=== PATIENT | female | born 1970 | race Caucasian/White ===

== ENCOUNTER 2021-03-25 12:16 | Emergency (ER) | payer OTHER ==
[~2021-03-25 12:16] MED LIST: BENTYL 20MG TAB20 MG PO; CYCLOBENZAPRINE10 MG PO; LODINE CAP 300300 MG PO; MEDROL DOSEPAK 24 MG PO; MOBIC15 MG PO; NEURONTIN800 MG PO; NORCO 5-325 TA1 EACH PO; PENVEE K 500 M500 MG PO; PROTONIX40 MG PO; TRIAMTERENE-HC1 EAC1 PO; ZOFRAN ODT 4 MG4 MG PO
[2021-03-25 12:57] LABS: HEMOGLOBIN 13.5 gm/dl (12.3-15.3); RED BLOOD COUNT 4.83 M/UL (4.00-5.10); WHITE BLOOD COUNT 7.7 K/UL (4.5-11.0)
[2021-03-25 13:21] LABS: BUN/CREATININE RATIO 22 (0-10)
[2021-03-25] MEDS ORDERED: IBUPROFEN800 MG PO (16:58)
== END 2021-03-25 17:07 | disposition home or self-care (01) ==
LOC: ER1 12:16
PROVIDERS: Physician Assistant Medical
DX: U07.1 COVID-19 (principal); R09.1 Pleurisy; F17.210 Nicotine dependence, cigarettes, uncomplicated
CPT/HCPCS: 71045; 80053; 81001; 82550; 82553; 83690; 83874; 83880; 84484; 85025; 85652; 86140; 87086; 93005; 96374; 99285; C9113; J7030; Q9967; U0002

== ENCOUNTER → 2021-08-03 | Outpatient (CLI) | payer OTHER ==
[~2021-08-03] MED LIST changes: +IBUPROFEN800 MG PO
== END ==
LOC: RAD 11:58
DX: M54.2 Cervicalgia (principal); M25.512 Pain in left shoulder; M47.812 Spondylosis without myelopathy or radiculopathy, cervical region
CPT/HCPCS: 72040; 73030

== ENCOUNTER → 2021-11-16 | Outpatient (CLI) | payer OTHER ==
[~2021-11-16] MED LIST changes: +LOSARTAN POTASS50 MG PO; +OMEPRAZOLE40 MG PO; +PROMETHAZINE12.5 M1 PO; +TRIAMTERENE-HC1 EACH PO
== END ==
LOC: EXRD 10:19
DX: M25.531 Pain in right wrist (principal); G89.29 Other chronic pain
CPT/HCPCS: 73100

== ENCOUNTER → 2022-02-21 | Outpatient (CLI) | payer MEDICARE, OTHER ==
[~2022-02-21] MED LIST changes: +CLARITIN10 M2 PO; +HYDROCODONE-AC1 EACH PO; +HYDROXYZINE HCL50 MG PO; +MELOXICAM15 MG PO
[2022-02-21 09:42] LABS: HEMOGLOBIN 13.7 gm/dl (12.3-15.3); RED BLOOD COUNT 4.95 M/UL (4.00-5.10); WHITE BLOOD COUNT 6.9 K/UL (4.5-11.0)
[2022-02-21 10:13] LABS: BUN/CREATININE RATIO 32 (0-10)
== END ==
LOC: OPSV2 08:00
PROVIDERS: Orthopaedic Surgery
DX: Z01.818 Encounter for other preprocedural examination (principal); M65.4 Radial styloid tenosynovitis [de Quervain]; I10 Essential (primary) hypertension
CPT/HCPCS: 36415; 80048; 85025; 93005

== ENCOUNTER → 2022-03-02 | Day surgery (SDC) | payer MEDICARE, OTHER ==
[~2022-03-02] MED LIST changes: +HYDROCODON-ACE1 EAC2 PO
== END | disposition home or self-care (01) ==
LOC: OR 06:59
DX: M65.4 Radial styloid tenosynovitis [de Quervain] (principal); I10 Essential (primary) hypertension; K21.9 Gastro-esophageal reflux disease without esophagitis
CPT/HCPCS: J0690; J1100; J1170; J1885; J2001; J2250; J2405; J2704; J3010